=== PATIENT | female | born 1960 | race Caucasian/White ===

== ENCOUNTER 2018-08-26 17:08 | Emergency (ER) | payer OTHER ==
[2018-08-26 17:15] VITALS: BP 138/84; PULSE 68; TEMP 97.5; BMI 22.4
--- NOTE | 2018-08-26 17:31 | PDOC ---
History of Present Illness - General Chief Complaint: Chest Pain Stated Complaint: CHEST PAIN Time Seen by Provider: 08/26/18 17:15 Past History - Past Medical History Allergies/Adverse Reactions: Allergies Allergy/AdvReac Type Severity Reaction Status Date / Time No Known Allergies Allergy Verified 08/26/18 17:09 Home Medications: Ambulatory Orders NK [No Known Home Medication] 08/26/18 COPD: No Psychiatric Problems: Yes (ANXIETY) - Suicide/Smoking/Psychosocial Hx Smoking History: Never smoked Hx Alcohol Use: Yes (OCASIONAL) Drug/Substance Use Hx: No *Physical Exam - Vital Signs Last Vital Signs Temp Pulse Resp BP Pulse Ox 97.5 F L 68 138/84 100 08/26/18 17:09 08/26/18 17:09 08/26/18 17:09 08/26/18 17:09 08/26/18 17:09 Moderate Sedation - Procedure Monitoring Vital Signs: Procedure Monitoring Vital Signs Temperature 97.5 F L 08/26/18 17:09 Pulse Rate 68 08/26/18 17:09 Respiratory Rate 19 08/26/18 17:09 Blood Pressure 138/84 08/26/18 17:09 O2 Sat by Pulse Oximetry (%) 100 08/26/18 17:09 ED Treatment Course - LABORATORY CBC & Chemistry Diagram: 08/26/18 17:40 08/26/18 17:40 - RADIOLOGY Radiology Studies Ordered: Category Date Time Status CHEST X-RAY PORTABLE* [RAD] Stat Radiology 08/26/18 17:15 Ordered *DC/Admit/Observation/Transfer - Discharge Dispostion Condition at time of disposition: Stable - Referrals - Patient Instructions - Post Discharge Activity
[2018-08-26] MEDS ORDERED: ASPIRIN 81 MG CHEWABLE TABLETS PO ONE (18:10)
[2018-08-26 18:14] LABS: BASO % 0.4 % (0-2.0); EOS % 1.1 % (0-4.5); HEMATOCRIT 39.2 % (32.4-45.2); HEMOGLOBIN 13.5 GM/dl (10.7-15.3); LYMPH % 31.1 % (8-40); MCH 32.5 pg (25.7-33.7); MCHC 34.4 g/dl (32.0-36.0); MEAN CELL VOLUME 94.4 fl (80-96); MEAN PLT VOLUME 7.8 fl (7.5-11.1); MONO % 8.9 % (3.8-10.2); NEUT % 58.5 % (42.8-82.8); PLATELET COUNT 259 K/MM3 (134-434); RBC 4.15 M/mm3 (3.60-5.2); RDW 11.8 % (11.6-15.6); WHITE BLOOD COUNT 5.7 K/mm3 (4.0-10.8)
--- NOTE | 2018-08-26 18:15 | PDOC ---
Attending Attestation - Resident Resident Name: CristopherMaritabuzzsilvia - ED Attending Attestation I have performed the following: I have examined & evaluated the patient, The case was reviewed & discussed with the resident, I agree w/resident's findings & plan - HPI HPI: 08/26/18 18:10 58-year-old female with history of anxiety presents with episode of acute onset of chest pain with back numbness and lightheadedness. Patient was in her usual state of good health, had a full session on her exercise bike last night, was meeting a friend when she developed these symptoms suddenly. He went outside and started feeling better, presents for evaluation still feeling mild residual discomfort. Has had similar episodes but not as severe in the past, particularly over the last few months while falling asleep at night. Those episodes spontaneously resolved, she did not categorize them as panic attacks. She takes anxiolytics at baseline, but denies any triggers today. At baseline, has no exercise limitations, never had a stress test. She does not smoke or do drugs, traveled last month but has no symptoms of DVT, no personal or family history of hypercoagulability. Mom had heart attack in her upper 60s or low 70s but did have medical problems. - Physicial Exam PE: 08/26/18 18:12 Vital signs are within normal limits Alert, anxious with some pressured speech, otherwise no acute distress. Breathing comfortably. Baseline right medial gaze palsy, extraocular movements are otherwise intact Oropharynx clear without stridor Lungs are clear without wheezing or crackles Heart is regular without murmurs or ectopy Abdomen is benign, slight epigastric discomfort without guarding or rebound No calf tenderness or edema - Medical Decision Making 08/26/18 18:13 58-year-old female with history of anxiety presents with episode of chest pain/ lightheadedness at rest. Began just prior to arrival and now starting to subside , hemodynamically stable without red flags on history or physical exam. Overall , this is atypical for ACS, conservatively has heart score of 2 assuming family history. Clinically rules out for PE, question GERD/gastritis. Labs, trend troponin 2 EKG, chest x-ray Aspirin Reassess. If above is within normal limits and symptoms improved, can follow-up with her primary physician for outpatient stress testing. 08/26/18 18:53 labs normal including troponin. cxr normal . will check second trop at 8:30pm, dispo accordingly. Patient was signed out to the oncoming ED physician to follow-up the results, reassess the patient, and dispo accordingly. Heart Score/ECG Review - History History: Slightly suspicious - Electrocardiogram EKG: Normal - Age Age: 45-65 - Risk Factors Based on the list above the patient has:: 1-2 risk factors - Troponin Troponin: </= normal limit - Score Heart Score - Total: 2 #1 ECG reviewed & interpreted by me at: 17:34 General ECG Interpretation: Sinus Rhythm, Normal Rate (70), Normal Intervals ( qtc 440), No acute ischemic changes
[2018-08-26 18:16] LABS: ALBUMIN 3.9 g/dl (3.4-5.0); ALK PHOS 83 U/L (45-117); ANION GAP 8 MMOL/L (8-16); BILIRUBIN,TOTAL 0.6 mg/dl (0.2-1); BLOOD UREA NITROGEN 10 mg/dl (7-18); CALCIUM 8.9 mg/dl (8.5-10); CHLORIDE 101 mmol/L (98-107); CO2 27 mmol/L (21-32); CREATININE 0.7 mg/dl (0.55-1.3); GLUCOSE,RANDOM 102 mg/dl (74-106); POTASSIUM 3.7 mmol/L (3.5-5.1); SGOT/AST 28 U/L (15-37); SGPT/ALT 31 U/L (13-61); SODIUM 136 mmol/L (136-145); TOT PROT 6.1 g/dl (6.4-8.2)
[2018-08-26 18:21] LABS: URINE APPEARANCE SL CLOUDY; URINE BILIRUBIN NEGATIVE (NEGATIVE); URINE COLOR YELLOW; URINE GLUCOSE (UA) NEGATIVE (NEGATIVE); URINE KETONE NEGATIVE (NEGATIVE)
[2018-08-26 18:22] LABS: PH,URINE 7.5 (4.5-8); URINE LEUK ESTERASE 1+ (NEGATIVE); URINE NITRITE NEGATIVE (NEGATIVE); URINE PROTEIN NEGATIVE (NEGATIVE); URINE UROBILINOGEN 0.2 (0.2-1.0)
[2018-08-26 18:25] LABS: EPI CELLS FEW /HPF; URINE BACTERIA NONE SEEN /hpf (NEGATIVE)
[2018-08-26] MEDS ORDERED: ASPIRIN 81 MG CHEWABLE TABLETS ONE (18:54)
--- NOTE | 2018-08-26 20:12 | PDOC ---
*Physical Exam - Vital Signs Last Vital Signs Temp Pulse Resp BP Pulse Ox 97.5 F L 68 19 138/84 100 08/26/18 17:09 08/26/18 17:09 08/26/18 17:09 08/26/18 17:09 08/26/18 17:09 ED Treatment Course - LABORATORY CBC & Chemistry Diagram: 08/26/18 17:40 08/26/18 17:40 - ADDITIONAL ORDERS Additional order review: Laboratory Results 08/26/18 08/26/18 08/26/18 17:40 17:40 17:40 Sodium 136 Potassium 3.7 Chloride 101 Carbon Dioxide 27 Anion Gap 8 BUN 10 Creatinine 0.7 Creat Clearance w eGFR > 60 Random Glucose 102 Calcium 8.9 Total Bilirubin 0.6 AST 28 ALT 31 Alkaline Phosphatase 83 Troponin I < 0.03 Total Protein 6.1 L Albumin 3.9 Urine Color Yellow Urine Appearance Sl cloudy Urine pH 7.5 Ur Specific [place] 1.015 Urine Protein Negative Urine Glucose (UA) Negative Urine Ketones Negative Urine Blood Trace-intact H Urine Nitrite Negative Urine Bilirubin Negative Urine Urobilinogen 0.2 Ur Leukocyte Esterase 1+ H Urine RBC 2-5 Urine WBC 2-5 Ur Epithelial Cells Few Urine Bacteria None seen 08/26/18 17:40 RBC 4.15 MCV 94.4 MCHC 34.4 RDW 11.8 MPV 7.8 Neutrophils % 58.5 Lymphocytes % 31.1 Monocytes % 8.9 Eosinophils % 1.1 Basophils % 0.4 - Medications Given in the ED: ED Medications Discontinued Medications Generic Name Dose Route Start Last Admin Trade Name Freq PRN Reason Stop Dose Admin Aspirin 324 mg 08/26/18 18:10 08/26/18 18:56 Asa - PO 08/26/18 18:11 324 mg ONCE ONE Administration Progress Note - Progress Note Progress Note: Care of this patient was transferred to sc from Dr. Cardenas at 1900 hrs. Patient is a 58-year-old female who is pending a second troponin. Patient's heart score is 2. Patients second troponin is pending for 8:30. That is if patient's second troponin is also negative that she will be discharged. Patient does not want to stay for her second troponin however she doesn't agree to have it drawn but is leaving AMA after it is drawn before the results are back. I did discuss with patient and she did agree to come back if it is elevated. I have a phone number for the patient and will call her if it is elevated however She did sign out AMA. Patient understood the consequences of leaving AGAINST MEDICAL ADVICE including heart attack, permanent disability or . *DC/Admit/Observation/Transfer Diagnosis at time of Disposition: Chest pain Qualifiers: Chest pain type: unspecified Qualified Code(s): R07.9 - Chest pain, unspecified - Discharge Dispostion Disposition: AGAINST MEDICAL ADVICE Condition at time of disposition: Stable - Referrals - Patient Instructions Additional Instructions: Even though you are leaving AGAINST MEDICAL ADVICE and by leaving [facility] medical advice you except the risk of heart attack, permanent disability and . If anytime he decided to change her mind come back to the emergency room immediately. If your troponin is elevated I will also call you and he will need to come back to the emergency room immediately. Return to the emergency department immediately with ANY new, persistent or worsening symptoms. Continue any medications as previously prescribed by your physician. You should follow up with your primary doctor as soon as possible regarding today's emergency department visit. . Please make sure your doctor reviews the results of your emergency evaluation. Thank you for coming to the Emergency Department today for your care. It was a pleasure to see you today. Please note that your evaluation is INCOMPLETE until you follow-up with your doctor. - Post Discharge Activity
--- NOTE | 2018-08-28 02:39 | EKG ---
Test Reason : Blood Pressure : / mmHG Vent. Rate : 070 BPM Atrial Rate : 070 BPM P-R Int : 166 ms QRS Dur : 074 ms QT Int : 408 ms P-R-T Axes : 061 060 069 degrees QTc Int : 440 ms NORMAL SINUS RHYTHM NORMAL ECG NO PREVIOUS ECGS AVAILABLE Confirmed by FAZAL MCKEON, DELFINO ([id number]) on 08/28/2018 2:39:19 AM Referred By: DR MOREL Confirmed By:DELFINO DIEHL MD
== END 2018-08-26 21:09 | disposition left against medical advice (07) ==
LOC: FER 17:08
DX: R07.9 Chest pain, unspecified (principal); F41.9 Anxiety disorder, unspecified
CPT/HCPCS: 36415; 71045-TC-FY; 80053; 81003; 81015; 84484; 85025; 93005; 99283-25

== ENCOUNTER 2020-12-08 12:16 | Emergency (ER) | payer OTHER ==
[2020-12-08 12:48] VITALS: BP 141/77; PULSE 76; TEMP 98.6; BMI 23.1
[2020-12-08 13:24] LABS: BASO % 1.2 % (0-2.0); EOS % 0.7 % (0-4.5); HEMATOCRIT 42.3 % (32.4-45.2); HEMOGLOBIN 14.7 GM/dl (10.7-15.3); LYMPH % 27.3 % (8-40); MCH 32.8 pg (25.7-33.7); MCHC 34.6 g/dl (32.0-36.0); MEAN CELL VOLUME 94.7 fl (80-96); MEAN PLT VOLUME 7.8 fl (7.5-11.1); MONO % 5.6 % (3.8-10.2); NEUT % 65.2 % (42.8-82.8); PLATELET COUNT 283 K/MM3 (134-434); RBC 4.47 M/mm3 (3.60-5.2); RDW 11.7 % (11.6-15.6); WHITE BLOOD COUNT 6.3 K/mm3 (4.0-10.8)
[2020-12-08 13:33] LABS: ACTIVATED PTT 28.6 SECONDS (25.2-36.5)
[2020-12-08 13:36] LABS: ALBUMIN 4.1 g/dl (3.4-5.0); ALK PHOS 79 U/L (45-117); ANION GAP 6 MMOL/L (8-16); BILIRUBIN,TOTAL 0.9 mg/dl (0.2-1); CHLORIDE 104 mmol/L (98-107); CHOLESTEROL 348 mg/dl (50-200); CO2 28 mmol/L (21-32); CREATININE 0.7 mg/dl (0.55-1.3); GLUCOSE,RANDOM 96 mg/dl (74-106); HDL CHOLESTEROL 43 mg/dl (40-60); LDL CHOLESTEROL (ONLY DFH) 215 mg/dl (5-100); SGOT/AST 29 U/L (15-37); SGPT/ALT 42 U/L (13-61); SODIUM 138 mmol/L (136-145); TOT PROT 6.5 g/dl (6.4-8.2); TRIGLYCERIDES 451 mg/dl (0-150)
[2020-12-08 13:37] LABS: INR 1.04 (0.82-1.09); PROTHROMBIN TIME (PATIENT) 11.6 SEC (10.2-13.0)
== END 2020-12-08 15:31 | disposition home or self-care (01) ==
LOC: FER 12:16
DX: R53.1 Weakness (principal)
CPT/HCPCS: 36415; 70450-TC; 70551-TC; 80053; 80061; 82550; 84443; 84484; 85025; 85610; 85730; 99285-25

== ENCOUNTER 2024-02-14 17:39 | Emergency (ER) | payer OTHER ==
[2024-02-14 18:16] VITALS: BP 157/83; PULSE 82; RESP 18; TEMP 98.7; BMI 22.6
[2024-02-14] MEDS: SODIUM CHLORIDE 1,000 ML IV STA (18:45)
[2024-02-14] MEDS: FAMOTIDINE 20 MG/50 ML IVPB 20 MG/50 ML MG IVPB ONE (18:50)
[2024-02-14] MEDS ORDERED: ONDANSETRON 4 MG/2 ML VIAL ONE (18:52)
[2024-02-14] MEDS ORDERED: FAMOTIDINE 20 MG/50 ML IVPB 20 MG/50 ML MG IVPB ONE (18:52)
[2024-02-14] MEDS ORDERED: MAG HYDROX/AL HYDROX/SIMETH 30 ML UNIT-DOSE CUP ONE (18:52)
[2024-02-14] MEDS ORDERED: ACETAMINOPHEN INJECTION 100 ML IVPB ONE (18:52)
[2024-02-14] MEDS: ONDANSETRON 4 MG/2 ML VIAL IVPUSH ONE (18:55)
[2024-02-14 18:59] LABS: HEMATOCRIT 45.8 % (32.4-45.2); HEMOGLOBIN 15.6 G/dL (10.7-15.3); MCH 32.1 pg (25.7-33.7); MCHC 34.1 g/dl (32.0-36.0); MEAN CELL VOLUME 94.3 fl (80-96); PLATELET COUNT 265.8 10^3/uL (134-434); RBC 4.86 10^6/uL (3.60-5.2); RDW 12.3 % (11.6-15.6)
[2024-02-14] MEDS: ACETAMINOPHEN 1000 MG/100 ML BAG IVPB ONE (18:59)
[2024-02-14] MEDS: MAG HYDROX/AL HYDROX/SIMETH 30 ML UNIT-DOSE CUP PO ONE (18:59)
[2024-02-14 19:39] LABS: ALBUMIN 4.6 g/dl (3.4-5.0); BILIRUBIN,TOTAL 0.6 mg/dl (0.2-1); CALCIUM 10.2 mg/dl (8.5-10.1); CREATININE 0.8 mg/dl (0.6-1.3); POTASSIUM 3.8 mmol/L (3.5-5.1)
[2024-02-14 19:41] LABS: PLATELET ESTIMATE ADEQUATE
== END 2024-02-14 20:53 | disposition home or self-care (01) ==
LOC: FER 17:39
PROC: 3E033GC Introduction of Other Therapeutic Substance into Peripheral Vein, Percutaneous Approach (ICD-10-PCS; principal; 2024-02-14)
PROC: 3E033GC Introduction of Other Therapeutic Substance into Peripheral Vein, Percutaneous Approach (ICD-10-PCS; 2024-02-14)
PROC: 3E033NZ Introduction of Analgesics, Hypnotics, Sedatives into Peripheral Vein, Percutaneous Approach (ICD-10-PCS; 2024-02-14)
DX: R10.13 Epigastric pain (principal); R19.7 Diarrhea, unspecified
CPT/HCPCS: 36415; 76705-TC; 80053; 81003; 81015; 83690; 84484; 85027; 87086; 93005; 99285-25; J0131